=== PATIENT | male | born 1950 | race Two or more races ===

== ENCOUNTER → 2024-10-20 06:17 | Day surgery (SDC) | payer MEDICARE, SELFPAY | LOC: GI 06:17 | PROVIDERS: ATTENDING PHYSICIAN Internal Medicine Gastroenterology; FAMILY PHYSICIAN Nurse Practitioner Adult Health | DX: R13.10 Dysphagia, unspecified (principal); K22.2 Esophageal obstruction; K22.89 Other specified disease of esophagus | CPT/HCPCS: 43249; 88305 ==